=== PATIENT | female | born 1940 | race Caucasian/White ===

== ENCOUNTER 2019-10-09 06:55 | Day surgery (SDC) | payer MEDICARE ==
[~2019-10-09 06:55] MED LIST: CEFAZOLIN 2 Gram 2 GM/50 ML BAG IVPB ONE; CELECOXIB 100 MG CAPSULE PO ONE; FAMOTIDINE 20MG TABLET PO ONE; MECLIZINE 25 MG TABLET PO ONE; METOCLOPRAMIDE 10 MG TABLET PO ONE; VANCOMYCIN 1GM/200ML PREMIX 1 GM/200 ML PIGGYBACK IVPB ONE
[2019-10-09] MEDS ORDERED: MIDAZOLAM HCL 2MG/2ML VIAL IV ONE (06:56)
[2019-10-09] MEDS ORDERED: PROPOFOL 10 MG/ML VIAL IV ONE (06:56)
[2019-10-09] MEDS ORDERED: LIDOCAINE 2% MDV (20MG/ML) 20ML VIAL IV ONE (06:56)
[2019-10-09] MEDS ORDERED: DEXAMETHASONE 4 MG/ML 1ML VIAL IVP ONE (06:56)
[2019-10-09] MEDS ORDERED: ROPIVACAINE HCL (NAROPIN) /PF 5MG/ML 20ML VIAL IV ONE (06:56)
[2019-10-09 07:49] LABS: ABO GROUP O; ANTIBODY SCREEN NEGATIVE (NEGATIVE); RH TYPE POSITIVE
[2019-10-09] MEDS ORDERED: RINGERS SOLUTION,LACTATED 1,000 ML IV ONE ×2 (08:06→09:50)
[2019-10-09] MEDS ORDERED: BUPIVACAINE 0.5% W/EPI MPF 30 ML VIAL IU ONE (09:49)
[2019-10-09] MEDS ORDERED: TRANEXAMIC ACID 1,000 MG/10 ML ML IV ONE (09:50)
[2019-10-09] MEDS ORDERED: TRANEXAMIC ACID 1,000 MG/10 ML ML IU ONE (09:50)
[2019-10-09] MEDS ORDERED: KETOROLAC 30 MG/ML VIAL IVP PRN (10:55)
[2019-10-09] MEDS ORDERED: HYDROMORPHONE HCL 2 MG/ML VIAL IM PRN (10:55)
[2019-10-09] MEDS ORDERED: ACETAMINOPHEN W/ CODEINE 300MG/60MG TABLET PO PRN ×2 (10:55)
[2019-10-09] MEDS ORDERED: ZOLPIDEM TARTRATE 5 MG TABLET PO PRN (10:55)
[2019-10-09] MEDS ORDERED: ONDANSETRON HCL IV 4 MG/2 ML VIAL IVP PRN (10:55)
[2019-10-09] MEDS ORDERED: ACETAMINOPHEN 325 MG TAB PO PRN (10:55)
[2019-10-09] MEDS ORDERED: MAGNESIUM HYDROXIDE 30 ML UDC PO PRN (10:55)
[2019-10-09] MEDS ORDERED: AL HYDROX/MAG HYDROX 30ML UD PO PRN (10:55)
[2019-10-09] MEDS ORDERED: BISACODYL 10 MG SUPP RC PRN (10:55)
[2019-10-09] MEDS ORDERED: DIPHENHYDRAMINE HCL 25 MG CAPSULE PO PRN (10:55)
[2019-10-09] MEDS ORDERED: HYDROCODONE/APAP 10/325 TABLET PO PRN (10:55)
[2019-10-09] MEDS ORDERED: NALOXONE 0.4 MG/1 ML VIAL IVP PRN (10:55)
[2019-10-09] MEDS ORDERED: TRAMADOL HCL 50 MG TABLET PO PRN (10:55)
[2019-10-09] MEDS ORDERED: OXYBUTYNIN CHLORIDE 5MG TABLET PO PRN (11:36)
[2019-10-09] MEDS: HYDROCODONE/APAP 10/325 TABLET PO PRN ×2 (14:44→23:57)
[2019-10-09] MEDS: POTASSIUM CHLORIDE/D5-0.9%NACL 20 MEQ/1,000 ML BAG IV SCH (14:45)
--- NOTE | 2019-10-09 15:24 | Rehab Evaluation ---
Patient Information - Patient Information Diagnosis: L knee DJD Ordered Treatment: PT Evaluate and Treat Status: Initial Evaluation Surgery: Yes (L TKA) Date of Surgery: 10/09/19 Past Medical/Surgical Hx: PAST MEDICAL/SURGICAL HISTORY Surgery to Affected Area? No Recent Surgery? Past Surgical History BLADDER STIM MAR C SCOPES BILAT CATS COLON SX CYSTOSCOPY PMH - Respiratory Hx Respiratory Disorders Yes Hx Bronchitis Yes: HX OF Hx Pneumonia Yes: HX OF Comment: SINUS DRAINAGE PMH - Cardiovascular Hx Cardiovascular Disorders Yes Exercise Tolerance Good Comment: HYPERLIPIDEMIA PMH - Neuro Hx Neurological Disorders Yes Hx Dizziness Yes: VERTIGO CONTROLLED WITH DAILY ANTIVERTT Hx Headaches Yes: OCCASS PMH - GI Hx Gastrointestinal Disorders Yes Hx Gastroesophageal Reflux Yes: CONTROLLED WITH MEDS Hx Irritable Bowel Yes: DIARRHEA WHEN ANXIOUS PMH - Hx Genitourinary Disorders Yes Hx Bladder Problem Yes: PT HAS BLADDER STIM. HAS LEAKING PMH - Endocrine Hx Endocrine Disorders Yes Hx Thyroid Disease Yes PMH - Musculoskeletal Hx Musculoskeletal Disorders Yes Hx Arthritis Yes: BILAT KNEES PMH - Psych Hx Psychiatric Problems No PMH - Hematology/Oncology Hx Hematology/Oncology Yes Disorders Hx Blood Transfusion Reaction No Premorbid Status: Detail (The patient was independent with all mobility prior to surgery.) Social History: Detail (The patient lives with spouse in a two story house with 2 stairs at the enterance. The patient will be staying on the main floor. The bathroom is equipped with a: walk in shower, hand held shower and a standard height toilet. Grab bars were present by the tub but not the toilet. The patient has a two wheeled walker and quad cane.) Precautions: Prim, Fall, Other (WBAT on the L LE) - Time With Patient Total Time Spent With Patient (Min): 30 Treatment Procedures: Detail (Initial Evaluation) Subjective Information - Subjective Information Per Patient (The patient had complaints of L knee soreness.) Objective Data - Mental Status Patient Orientation: Oriented x3 - Visual Perception Appears within normal limits for therapeutic activities - ROM Not within normal limits (The patient's L knee AROM was limited s/p surgery. All other LE AROM was limited.) - Strength/Tone Other (The patient's LE strength was not tested s/p however is functional.) - Bed Mobility Independent (The patient was independent with supine to and from sit transfer.) - Transfers Independent (The patient was independent with sit to and from stand transfer and toilet transfer.) - Balance Balance Sitting: Good Balance Standing: Good - Gait Detail (The patient ambulated with front wheeled walker WBAT on L LE independently/supervision for safety a distance of 90 feet x 1.) Therapy Assessment - Therapy Assessment Detail (The patient was independent with bed mobility and transfers and required supervision for safety only with ambulation. The patient will be seen for 1-2 more sessions to complete inpt. PT goals.) Problem List - Problem List Physical Therapy Problem List: Detail (Decreased L knee AROM and L LE strength.) Goals - Goals Physical Therapy Goals: 1) The patient will ambulate independently with assistive device household distances WBATon L LE. 2) The patient will ambulate on stairs with use of one railing and std. cane using proper technique and with supervision for safety. 3) The patient will be independent with TKA HEP. Plan - Plan Physical Therapy Plan: PT 1-2 sessions for gait training on levels and stairs and instruction in TKA HEP.
--- NOTE | 2019-10-09 15:50 | Rehab Evaluation ---
Patient Information - Patient Information Diagnosis: L knee DJD Ordered Treatment: OT Evaluate and Treat Status: Initial Evaluation Surgery: Yes (L TKA) Date of Surgery: 10/09/19 Past Medical/Surgical Hx: PAST MEDICAL/SURGICAL HISTORY Surgery to Affected Area? No Recent Surgery? Past Surgical History BLADDER STIM MAR C SCOPES BILAT CATS COLON SX CYSTOSCOPY PMH - Respiratory Hx Respiratory Disorders Yes Hx Bronchitis Yes: HX OF Hx Pneumonia Yes: HX OF Comment: SINUS DRAINAGE PMH - Cardiovascular Hx Cardiovascular Disorders Yes Exercise Tolerance Good Comment: HYPERLIPIDEMIA PMH - Neuro Hx Neurological Disorders Yes Hx Dizziness Yes: VERTIGO CONTROLLED WITH DAILY ANTIVERTT Hx Headaches Yes: OCCASS PMH - GI Hx Gastrointestinal Disorders Yes Hx Gastroesophageal Reflux Yes: CONTROLLED WITH MEDS Hx Irritable Bowel Yes: DIARRHEA WHEN ANXIOUS PMH - Hx Genitourinary Disorders Yes Hx Bladder Problem Yes: PT HAS BLADDER STIM. HAS LEAKING PMH - Endocrine Hx Endocrine Disorders Yes Hx Thyroid Disease Yes PMH - Musculoskeletal Hx Musculoskeletal Disorders Yes Hx Arthritis Yes: BILAT KNEES PMH - Psych Hx Psychiatric Problems No PMH - Hematology/Oncology Hx Hematology/Oncology Yes Disorders Hx Blood Transfusion Reaction No Premorbid Status: Detail (The patient was independent with all ADLs and fxl mobility prior to surgery and driving.) Social History: Detail (The patient lives with spouse in a two story house with 2 stairs at the entrance and no hand rails. The patient will be staying on the main floor. The bathroom on the main floor is equipped with a walk in shower, shower chair, hand held shower and a standard height toilet. Grab bars were present by the tub but not the toilet. The patient has a two wheeled walker and quad cane. The patient reports her will assist as needed at DC.) Precautions: [place], Fall, Other (WBAT on the L LE) - Time With Patient Total Time Spent With Patient (Min): 22 (1 OT eval: low complexity) Subjective Information - Subjective Information Per Patient Objective Data - Pain Pain Present: Yes Pain Scale Used: Numeric (1 - 10) (10 L knee, LAVON Lincoln giving meds at bedside) - Mental Status Patient Orientation: Oriented x3 - Visual Perception Appears within normal limits for therapeutic activities - ROM Within normal limits (B UEs) - Strength/Tone Within normal limits (B UEs) - Coordination Appears within normal limits for therapeutic activities - Bed Mobility Independent (supine to/from sitting EOB no assist and good balance) - Transfers Independent (Sit to/from stand to FWW, no assist, good balance, good safety awareness.) - Balance Balance Sitting: Good Balance Standing: Fair (w/ walker support) - Sensation Intact - Gait Detail (Fxl mobility within bedroom w/ FWW, good balance and safety awareness.) - ADL's/IADL's Detail (Post demo, Pt completes LB dressing w/ slight modified technique. Verbalizes understanding re: compression socks wearing schedule and techniques to don/doff; how to don/doff ice pack on knee; bathroom safety, walker use/safety/placement during standing ADLs.) Therapy Assessment - Therapy Assessment Detail (Pt demos good safety and independence w/ all ADLs and fxl mobility post education. Pt's spouse will be able to assist as needed at DC. Pt appears ready for home DC when medically ready.) Patient Education - Patient Education Response: Return Demonstration, Reinforcement Needed Teaching Method: Discussion, Demonstration Teaching Recipient: Patient Barriers To Learning: None Problem List - Problem List Physical Therapy Problem List: Detail (Decreased L knee AROM and L LE strength.) Occupational Therapy Problem List: Detail (No further IP OT needs identified.) Goals - Goals Physical Therapy Goals: 1) The patient will ambulate independently with assistive device household distances WBATon L LE. 2) The patient will ambulate on stairs with use of one railing and std. cane using proper technique and with supervision for safety. 3) The patient will be independent with TKA HEP. Occupational Therapy Goals: No further IP OT needs/goals identified. Prognosis - Prognosis Good Plan - Plan Physical Therapy Plan: PT 1-2 sessions for gait training on levels and stairs and instruction in TKA HEP. Occupational Therapy Plan: No further IP OT needs/goals identified. DC OT services. Thank you for this referral.
[2019-10-09] MEDS: CEFAZOLIN 2 Gram 2 GM/50 ML BAG IVPB SCH (17:12)
[2019-10-09] MEDS: DOCUSATE SODIUM 100 MG CAPSULE PO SCH (21:19)
[2019-10-09] MEDS: CALCIUM CARBONATE 500 MG TAB.CHEW PO SCH (21:20)
[2019-10-09] MEDS ORDERED: TRAZODONE 50 MG TABLET PO SCH (22:00)
[2019-10-10] MEDS: CEFAZOLIN 2 Gram 2 GM/50 ML BAG IVPB SCH ×2 (01:44→10:11)
[2019-10-10] MEDS: POTASSIUM CHLORIDE/D5-0.9%NACL 20 MEQ/1,000 ML BAG IV SCH ×2 (05:13→18:41)
[2019-10-10] MEDS: HYDROCODONE/APAP 10/325 TABLET PO PRN ×2 (06:05→11:38)
[2019-10-10 06:31] LABS: HEMATOCRIT 35.6 % (35.0-47.0); HEMOGLOBIN 11.1 gm/dl (11.6-16.0)
[2019-10-10 06:44] LABS: BLOOD UREA NITROGEN 11 mg/dL (8-23); CREATININE 0.7 mg/dL (0.5-0.9); EST GLOMERULAR FILTRATION RATE > 60 mL/min; GLUCOSE,RANDOM 93 mg/dL (74-109)
[2019-10-10] MEDS ORDERED: LEVOTHYROXINE SODIUM 100 MCG TABLET PO SCH (07:00)
[2019-10-10] MEDS ORDERED: PANTOPRAZOLE SODIUM 40 MG TABLET PO SCH (07:00)
[2019-10-10] MEDS ORDERED: ASPIRIN 81 MG TABEC PO SCH (10:00)
[2019-10-10] MEDS ORDERED: ATORVASTATIN 20 MG TABLET PO SCH (10:00)
[2019-10-10] MEDS ORDERED: MECLIZINE 25 MG TABLET PO SCH (10:00)
[2019-10-10] MEDS ORDERED: FERROUS SULFATE 325 MG TAB PO SCH (10:00)
[2019-10-10] MEDS ORDERED: RIVAROXABAN 10 MG TABLET PO SCH (10:00)
[2019-10-10] MEDS: CALCIUM CARBONATE 500 MG TAB.CHEW PO SCH (10:10)
[2019-10-10] MEDS: DOCUSATE SODIUM 100 MG CAPSULE PO SCH (10:11)
--- NOTE | 2019-10-10 11:06 | Physical Therapy Tx Note ---
Physical Therapy Tx Note - Treatment Note Tolerated: Good Total Time Spent With Patient: 50 Physical Therapy Tx Note: Detail (Pt in bed upon arrival; awake, alert, cooperative for therapy. Nrsg in for medication administration while we discussed home environment and stairs. Pt wanted to get dressed in preparation for discharge. She was independent w/bed mobility, required assist for donning L compression stocking; independent w/donning pants, required CGA for shoes but would be independent w/shoe horn. Independently dressed upper body in standing w/SBA/supervision for balance. Assisted patient w/packing her suitcase. Ambulated w/front wheeled walker from bedside to stairwell by nrsg station, used single tip cane and handrail to ambulate down and up three steps w/VCs for technique. Ambulated back to room w/front wheeled walker, to bathroom; independently washed face, brushed teeth and hair. Returned to recliner w/PolarPak to L knee, call light and bedside table in reach. Reviewed HEP. Nrsg notified of patient's position.) Physical Therapy Problem List: Detail (Decreased L knee AROM and L LE strength.) Physical Therapy Goals: 1) The patient will ambulate independently with assistive device household distances WBATon L LE. Goal MET. 2) The patient will ambulate on stairs with use of one railing and std. cane using proper technique and with supervision for safety. MET. 3) The patient will be independent with TKA HEP. MET. Prognosis: Good Physical Therapy Plan: Pt is discharged from physical therapy at this time, having met all goals. Anticipate that patient will be leaving early this afternoon.
--- NOTE | 2019-10-11 10:52 | Operative Note ---
DATE OF SURGERY: 10/09/2019 PREOPERATIVE DIAGNOSIS: End-stage arthrosis of the left knee. POSTOPERATIVE DIAGNOSIS: End-stage arthrosis of the left knee. OPERATION: Cemented left total knee arthroplasty using [employer] components with a size 5 cobalt chrome femur, a size 4 stemmed tibia baseplate, a 9 mm lipped tibial insert, and a 35 mm all-plastic patella. STAFF SURGEON: Ld Ron MD ANESTHESIA: Spinal. PREPARATION: Chloraprep. INDIVIDUAL CONSIDERATIONS: None. PROCEDURE: The patient was taken to the operating room, placed supine on the operating room table. She had a successful induction of a spinal anesthetic. The left knee was then prepped and draped in the usual fashion. The patient had a midline approach to the knee. The limb was elevated and tourniquet was inflated to 250 mmHg. Sharp dissection carried down through skin and subcutaneous tissue. Small veins were coagulated with a Bovie. A medial arthrotomy was performed. The patella was everted and the knee was flexed. The patient had exposed bone especially medially. Fat pad was resected, ACL was sacrificed, and provisional anterior meniscectomies were performed. The capsule was released from the medial proximal tibia. The initial femoral fuel pilot engineer hole was then made freehand. It was cut in 7.0 degrees of valgus and adjusted for rotation and secured with pins for a 10 mm resection. The initial transverse cut was then made. The skin guide was placed in the anterior and posterior fuel pilot engineer holes. It was found that a size 5 would be appropriate. It was cut in 3 degrees of external rotation. The anterior and posterior cuts followed by chamfer cuts were made. Osteophytes removed, and a size 5 trial was placed and found to fit well. The tibia was brought forward, and the remainder of the meniscal remnants removed with a Bovie. The extraarticular tibial cutting jig was placed. It was cut in neutral with a 3-degree AP slope. It was set for a 9 mm resection keyed off the high lateral side and secured with pins. When cutting the tibia, care was taken to preserve the PCL insertion on the tibia. After removing large medial osteophytes, I could fit a size 4 baseplate trial. It was adjusted for rotation and secured with pins. With a size 9 trial and femoral trial, there was excellent motion and stability. Ligamentous balance and rotation alignment were thought to be normal. Femoral fuel pilot engineer holes were impacted and the tibial keel stamp was impacted, and these trial components were removed. The patient had a thick patella and roughly 9 mm of bone was removed freehand. I could easily fit a 35 patella, and the 3 fuel pilot engineer holes were then drilled. The tourniquet was let down briefly to get bleeders posteriorly and then placed back up again. The knee was then thoroughly irrigated out with pulsatile Betadine and saline to remove any visual or palpable debris. Bony surfaces were dried with a CarboJet. A size 4 tibia baseplate was cemented into place followed by impaction of the 9 mm lipped tibial insert followed by cementing in the size 5 cobalt chrome femur followed by cementing in the 35 mm patella. The implant surfaces were compressed, excess cement was removed. After the cement had set, there was excellent motion and stability. Ligamentous balance, rotation alignment, and patellofemoral tracking were normal. No lateral release was required. Again final irrigation and then tourniquet was let down. Hemostasis was obtained with a Bovie. The skin, subcu, and periosteum were infiltrated with 30 mL of 0.5% Marcaine with epinephrine. The capsule was then closed with a running #2 quill, subcu was closed in layers with running 0 quill, skin was closed with juan. Then 1 g of tranexamic acid was mixed with 30 mL of saline and injected into the knee through a sterile 18-gauge needle, and a sterile bulky compressive dressing was applied. The patient tolerated the procedure well. Needle and sponge counts were correct. Estimated blood loss was minimal, and she was taken back to recovery in good condition. There were no complications. JIGNA
== END 2019-10-10 12:14 | disposition home health service (06) ==
LOC: SUR 06:55 → MEDSURG 12:17 → SUR 10-10 12:14
PROVIDERS: ATTEND Orthopaedic Surgery
DX: M17.12 Unilateral primary osteoarthritis, left knee (principal); E78.00 Pure hypercholesterolemia, unspecified; K21.9 Gastro-esophageal reflux disease without esophagitis; E03.9 Hypothyroidism, unspecified; Z96.0 Presence of urogenital implants
CPT/HCPCS: 27447; 01402; 64447; 85018; 85014; 80048; 86900; 86901; 86850; C1776 ×2; J1885; J0690 ×2; J3490 ×2; J2795; J3370; 76942; J3480; J7120